=== PATIENT | female | born 1960 | race Caucasian/White ===

== ENCOUNTER → 2017-08-30 | Day surgery (SDC) | payer OTHER ==
[~2017-08-30] MED LIST: MIDAZOLAM HCL/PF 5 MG/5 ML VIAL.; PROPOFOL 20 ML IV; diphenhydrAMINE 50 MG/ML VIAL; fentaNYL PF VIAL 100 MCG/2 ML VIAL
[2017-08-30] MEDS: IV RINGERS,LACTATED 1000ML 1,000 ML IV (15:36)
[2017-08-30] MEDS: diphenhydrAMINE 50 MG/ML VIAL IV (15:58)
== END ==
LOC: SURG 15:04
DX: Z09 Encounter for follow-up examination after completed treatment for conditions other than malignant neoplasm (principal); K64.0 First degree hemorrhoids; Z86.010 Personal history of colon polyps
CPT/HCPCS: 45378; J1200; J2250; J2704; J3010